=== PATIENT | male | born 1995 | race Caucasian/White ===

== ENCOUNTER → 2017-07-23 | Outpatient (CLI) | payer OTHER ==
--- NOTE | 2017-07-23 08:01 | US ---
EXAMINATION TYPE: US gallbladder DATE OF EXAM: 07/23/2017 COMPARISON: NONE CLINICAL HISTORY: R10.11 Right upper quadrant pain. RUQ pain EXAM MEASUREMENTS: Liver Length: 16.6 cm Gallbladder Wall: 0.3 cm CBD: 0.2 cm Right Kidney: 10.4 x 3.6 x 5.3 cm *Technical limitations due to overlying bowel content Pancreas: Obscured by bowel gas Liver: best seen intercostally, visualized portions appear wnl Gallbladder: no evidence of stones Evidence for sonographic Ortez's sign: no CBD: appears wnl Right Kidney: no evidence of hydronephrosis or nephrolithiasis IMPRESSION: 1. Limited exam technically demonstrates no definite acute process.
== END | disposition home or self-care (01) ==
LOC: RADUSWWP 07:25
PROVIDERS: ATTEND Family Medicine
DX: R10.11 Right upper quadrant pain (principal)
CPT/HCPCS: 76705

== ENCOUNTER 2018-07-26 07:32 | Emergency (ER) | payer OTHER ==
[2018-07-26 07:39] VITALS: RESP 18
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
[2018-07-26 09:56] VITALS: BP 125/81; PULSE 89; TEMP 98.9
== END 2018-07-26 09:23 | disposition home or self-care (01) ==
LOC: EC 07:32
DX: S00.83XA Contusion of other part of head, initial encounter (principal); S16.1XXA Strain of muscle, fascia and tendon at neck level, initial encounter; Z87.891 Personal history of nicotine dependence; V89.2XXA Person injured in unspecified motor-vehicle accident, traffic, initial encounter; Y92.410 Unspecified street and highway as the place of occurrence of the external cause
CPT/HCPCS: 70450; 70486; 72125; 99284

== ENCOUNTER → 2019-06-07 | Outpatient (CLI) | payer OTHER ==
--- NOTE | 2019-06-07 12:59 | XR ---
EXAMINATION TYPE: XR chest 2V DATE OF EXAM: 06/07/2019 COMPARISON: 08/10/2016 TECHNIQUE: PA and lateral views submitted. HISTORY: Chest pain FINDINGS: No pneumothorax or overt failure. Heart size normal. Subsegmental changes at the right lung base. IMPRESSION: 1. Right basilar atelectasis or early infiltrate.
== END | disposition home or self-care (01) ==
LOC: RADXRMAIN 12:22
PROVIDERS: ATTEND Family Medicine
DX: F17.210 Nicotine dependence, cigarettes, uncomplicated (principal); E66.01 Morbid (severe) obesity due to excess calories
CPT/HCPCS: 71046

== ENCOUNTER 2019-06-15 07:02 | Day surgery (SDC) | payer OTHER ==
[2019-06-13 15:03] VITALS: BMI 37.4
[~2019-06-15 07:02] MED LIST: LACTATED RINGERS 1,000 ML IV SCH
[2019-06-15 07:19] VITALS: RESP 18
[2019-06-15 07:20] VITALS: TEMP 98
[2019-06-15] MEDS ORDERED: LACTATED RINGERS 1,000 ML IV ONE ×2 (07:25)
[2019-06-15] MEDS ORDERED: LIDOCAINE 1% INJ 10MG/ML (20 ML MDV) ONE (07:40)
[2019-06-15] MEDS ORDERED: PROPOFOL 10 MG/ML 20 ML VIAL IV ONE (07:40)
--- NOTE | 2019-06-15 07:51 | P.GSHP ---
History of Present Illness H&P Date: 06/15/19 Chief Complaint: GERD This a 21-year-old male with complaints of GERD. Patient has history of chewing tobacco use. He said he swallowed"dip" Past Medical History Past Medical History: No Reported History Additional Past Medical History / Comment(s): POSSIBLE LESIONS FROM CHEWING TOBACCO. ASPERGER'S SYNDROME - COMPREHENSION PROBLEMS-OCD History of Any Multi-Drug Resistant Organisms: None Reported Additional Past Surgical History / Comment(s): testicular surg Past Anesthesia/Blood Transfusion Reactions: No Reported Reaction Smoking Status: Current every day smoker - Past Family History Mother Family Medical History: No Reported History Medications and Allergies Home Medications Medication Instructions Recorded Confirmed Type No Known Home Medications 06/13/19 06/15/19 History Allergies Allergy/AdvReac Type Severity Reaction Status Date / Time No Known Allergies Allergy Verified 06/13/19 14:54 Surgical - Exam Vital Signs Pulse Resp BP Pulse Ox 76 18 128/70 91 L 06/15/19 07:16 06/15/19 07:16 06/15/19 07:16 06/15/19 07:16 - General well developed, well nourished, no distress - Eyes PERRL - ENT normal pinna - Neck no masses - Respiratory normal expansion - Cardiovascular Rhythm: regular - Abdomen Abdomen: soft, non tender Assessment and Plan Assessment: GERD. We'll perform EGD.
--- NOTE | 2019-06-15 07:58 | P.OP ---
Date of Procedure: 06/15/19 Preoperative Diagnosis: GERD Postoperative Diagnosis: Mild duodenitis Moderate gastritis Procedure(s) Performed: EGD Anesthesia: MAC Surgeon: Sreedhar Morris Pathology: other (Antrum, duodenum) Condition: stable Disposition: PACU Description of Procedure: The patient's placed on the endoscopy table lateral position. He received IV sedation. The gastroscope was placed oropharynx passed in the esophagus and into the stomach. Scope was then placed through the pylorus. The first and second portion of the duodenum appeared mildly inflamed. Biopsies performed. Scope was then brought back the antrum this was moderately inflamed. A biopsies performed. There was no significant. Scope was retroflexed and remainder the stomach appeared normal. There was no significant hiatal hernia. The distal esophagus. Normal. The proximal esophagus appeared normal. Scope was withdrawn for patient.
[2019-06-15 08:05] VITALS: BP 107/72; PULSE 97
== END 2019-06-15 08:31 | disposition home or self-care (01) ==
LOC: ORWHC2ENDO 07:02
PROVIDERS: ATTEND Surgery
DX: K29.50 Unspecified chronic gastritis without bleeding (principal); K29.80 Duodenitis without bleeding; F84.5 Asperger's syndrome; F42.9 Obsessive-compulsive disorder, unspecified; E66.9 Obesity, unspecified; Z68.37 Body mass index [BMI] 37.0-37.9, adult; F17.220 Nicotine dependence, chewing tobacco, uncomplicated; Z98.890 Other specified postprocedural states
CPT/HCPCS: 88305; 43239; J2001; J2704

== ENCOUNTER → 2020-03-01 | Outpatient (CLI) | payer OTHER ==
--- NOTE | 2020-03-01 16:21 | US ---
EXAMINATION TYPE: US gallbladder DATE OF EXAM: 03/01/2020 COMPARISON: US 2017 CLINICAL HISTORY: Right upper quad pain R10.11. Abdomen pain EXAM MEASUREMENTS: Liver Length: 17.0 cm Gallbladder Wall: 0.2 cm CBD: 0.4 cm Right Kidney: 10.9 x 4.8 x 4.3 cm Difficult and limited study due to patient body habitus Pancreas: obscured by overlying midline bowel gas Liver: scanned intercostally, attenuating, heterogeneous Gallbladder: wnl Evidence for sonographic Ortez's sign: no CBD: visualized portions wnl, limited by overlying bowel gas Right Kidney: wnl IMPRESSION: 1. Mild fatty infiltration liver. 2. Hepatomegaly
== END | disposition home or self-care (01) ==
LOC: RADUSWWP 14:39
PROVIDERS: ATTEND Family Medicine
DX: K76.0 Fatty (change of) liver, not elsewhere classified (principal)
CPT/HCPCS: 76705

== ENCOUNTER → 2021-06-30 | Outpatient (CLI) | payer OTHER ==
--- NOTE | 2021-06-30 09:59 | US ---
EXAMINATION TYPE: US gallbladder DATE OF EXAM: 06/30/2021 COMPARISON: US 03/01/2020 CLINICAL HISTORY: R10.11 right upper quadrant pain. EXAM MEASUREMENTS: Liver Length: 17.0 cm Gallbladder Wall: 0.2 cm CBD: 0.4 cm Right Kidney: 10.4 x 4.3 x 4.8 cm Pancreas: Obscured by bowel gas Liver: left lobe obscured by bowel gas, otherwise difficult to penetrate. Gallbladder: No stones seen Evidence for sonographic Ortez's sign: No CBD: wnl Right Kidney: No hydronephrosis or masses seen IMPRESSION: Probable hepatic steatosis.
== END | disposition home or self-care (01) ==
LOC: RADUSWWP 09:15
PROVIDERS: ATTEND Family Medicine
DX: R10.11 Right upper quadrant pain (principal)
CPT/HCPCS: 76705

== ENCOUNTER → 2021-10-13 | Outpatient (CLI) | payer OTHER ==
--- NOTE | 2021-10-14 09:10 | NM ---
Nuclear medicine hepatobiliary scan. HISTORY: Pain. DOSAGE: The patient received 8 ounces of ensure plus and 4.4 mCi of Technetium 99m Choletec. FINDINGS: There is normal hepatic extraction. The gallbladder is seen by 35 minutes. There is bilia ry to bowel clearance by 20 minutes. Ejection fraction is 77%. IMPRESSION: 1. Normal hepatobiliary exam
== END | disposition home or self-care (01) ==
LOC: RADNMMAIN 13:56
PROVIDERS: ATTEND Family Medicine
DX: R10.11 Right upper quadrant pain (principal); R16.0 Hepatomegaly, not elsewhere classified
CPT/HCPCS: 78226; A9537